=== PATIENT | female | born 1940 | race Caucasian/White ===

== ENCOUNTER 2016-12-30 16:53 | Inpatient (IN) | payer OTHER ==
--- NOTE | ~2016-12-30 | HP ---
History And Physical [address] [place]. [address] NAME: EMILEE GORDON : 38 STATUS : ADM IN [facility]#: [id number] AGE: 76 ADM/REG DATE : 12/30/16 MR#: [id number] REPORT SERV DATE: 12/30/16 DICTATED BY: MANOJ MALDONADO DATE: 12/30/16 REPORT STATUS : Draft TRANSCRIBED BY: MODL DATE: 12/30/16 DATE OF ADMISSION: 12/30/2016 CHIEF COMPLAINT: A 76-year-old female presenting with recurrent C difficile colitis. HISTORY OF PRESENT ILLNESS: The patient states that in late 10/2016, she first developed diarrhea. She apparently had no identifiable risk factors of getting C difficile colitis but was found to be positive. She underwent a 14-day course of appropriate antibiotics. Her diarrhea had subsided but then about five days after completing antibiotics, had recurrence of diarrhea. Then within this last month, she has undergone another 14 days of treatment with resolution of diarrhea but once again about five days after stopping her antibiotics, the diarrhea began to resume. Now over the last few days, she states that she has about one bowel movement an hour or more and states that in the last 24 hours, she has had more than 24 bowel movements, she is certain. Over the last about three months, she has gone from a 120 pounds to a 106 pounds (a 14-pound weight loss). She describes intermittent lower abdominal cramping pain, 8/10 severity. No fevers or chills. No nausea or vomiting. She has felt dizzy and lightheaded. In the last two days, has noticed an alarming poor urine output, which was the main reason she was prompted to come to the hospital for further evaluation. REVIEW OF SYSTEMS: Otherwise, a 14-point review of systems was obtained and was negative. PAST MEDICAL HISTORY: 1. C difficile colitis. 2. Breast cancer in 2010, status post surgery. No chemotherapy, no radiation. She was on something like tamoxifen for five years. 3. Hypertension. 4. "Twisted intestine" with surgery. 5. No cardiac disease. No lung disease. PAST SURGICAL HISTORY: 1. Left mastectomy. 2. Partial bowel resection for "twisted intestine.". 3. Appendectomy. History And Physical [address] [place]. [id number] NAME: EMILEE GORDON : 38 STATUS : ADM IN PAT#: [id number] AGE: 76 ADM/REG DATE : 12/30/16 MR#: [id number] REPORT SERV DATE: 12/30/16 DICTATED BY: MANOJ MALDONADO DATE: 12/30/16 REPORT STATUS : Draft TRANSCRIBED BY: MASON DATE: 12/30/16 ALLERGIES: TO ALEVE, BENADRYL, AND CHLORZOXAZONE. SOCIAL HISTORY: Quit smoking in 1970s. Does not drink alcohol. She is . Her is in good health. They have two children, three grandchildren. They live in [place], [place]. FAMILY HISTORY: Mother with pancreatic cancer. Father when the patient was only 3 months old from motor vehicle accident. Sister with ITP. Two of her sisters have developed Alzheimer's dementia. There is no known family history of heart disease. MEDICATIONS: Current medications include calcium and vitamin D, Vasotec 10 mg daily, enalapril/hydrochlorothiazide 10/25 p.o. daily, metoprolol XL 25 mg daily, probiotics, multivitamin, and Prilosec. PHYSICAL EXAMINATION: VITAL SIGNS: Temperature 98.5, pulse 106, blood pressure 178/83, respiratory rate 18, O2 saturation 99% on room air. GENERAL: A pleasant, cooperative female, no evidence of acute distress. HEENT: Pupils are equal, round, and reactive to light. No conjunctival pallor. No scleral icterus. Nares are patent. Oropharynx is clear of obstruction. Dry mucous membranes. NECK: Trachea midline. No thyromegaly. LYMPH: No cervical lymphadenopathy. No supraclavicular lymphadenopathy. No inguinal lymphadenopathy. RESPIRATORY: Clear to auscultation at bases. No wheezes, rales, or rhonchi. Normal respiratory effort. CARDIOVASCULAR: Tachycardic, regular rhythm. No murmurs, rubs, or gallops. No extremity edema is appreciated. ABDOMEN: Significant lower quadrant abdominal discomfort, but no guarding, no rebound. Nondistended. No hepatosplenomegaly. DERMATOLOGICAL: Warm and dry extremities. No pallor, no cyanosis. PSYCHIATRIC: Normal affect. Good mood. Alert and oriented x3. LABORATORY DATA: White blood cell count 7.6, hemoglobin 12, hematocrit 34, and platelets 242. Sodium 124, potassium 3.4, chloride 87, bicarb 24, BUN 8, creatinine 0.52, and glucose 94. Urinalysis negative for infection. ASSESSMENT AND PLAN: 1. Recurrent Clostridium difficile colitis, "failed" two previous treatments since 10/2016. We will start IV Flagyl, p.o. Vancocin. Obtain a GI consult with Dr. Blandon. May need to consider stool transplant if no success with current treatment? and would likely need to establish with a GI doctor for followup in this case. 2. Hyponatremia. The patient is hypovolemic at this time. We will treat with IV fluids and hold hydrochlorothiazide. 3. Hypokalemia. Hold hydrochlorothiazide, replace potassium. Check magnesium. History And Physical [place] [id number] [facility] [place]. [address] NAME: EMILEE GORDON : 38 STATUS : ADM IN [facility]#: [id number] AGE: 76 ADM/REG DATE : 12/30/16 MR#: [id number] REPORT SERV DATE: 12/30/16 DICTATED BY: MANOJ MALDONADO DATE: 12/30/16 REPORT STATUS : Draft TRANSCRIBED BY: MODCherrie DATE: 12/30/16 KPL/MASON Manoj Maldonado M.D. / [id number] CC: Jeffrey Nieves MD
--- NOTE | ~2016-12-30 | CN ---
Consultation Report [address] [place]. [address] NAME: EMILEE GORDON : 38 STATUS : ADM IN PAT#: [id number] AGE: 76 ADM/REG DATE : 12/30/16 MR#: [id number] REPORT SERV DATE: 12/31/16 DICTATED BY: KG RAYMOND DATE: 12/31/16 REPORT STATUS : Draft TRANSCRIBED BY: MODL DATE: 12/31/16 CONSULTATION DATE OF CONSULTATION: HISTORY OF PRESENT ILLNESS: This patient developed C difficile infection in October 2016. She had no identifiable risk factors. She received two weeks of metronidazole 500 mg t.i.d. Five days after finishing the course, she had recurrence of diarrhea. She received another 14 days of metronidazole. Five days after stopping that diarrhea came back. She was started on vancomycin. The last few days, she has been having not much diarrhea almost feels "constipated" but passing mucus. She really denies much abdominal pain. She has lost 14 pounds. PAST MEDICAL HISTORY: Breast cancer and hypertension. PAST SURGICAL HISTORY: Partial colon resection. SOCIAL HISTORY: Nonsmoker and non drinker. FAMILY HISTORY: Pancreatic cancer and ITP. CURRENT MEDICATIONS: Vancomycin. PHYSICAL EXAMINATION: GENERAL: Looks younger than stated age. VITAL SIGNS: Blood pressure 170/80. Pleasant, in no acute distress. HEENT: Trachea midline. CHEST: Clear to A and P. CARDIAC: Normal. ABDOMEN: Soft and nontender. EXTREMITIES: Without deformity or edema. LABORATORY DATA: Lab work white count 7600. Sodium was low which was corrected. IMPRESSION: Recurrent Clostridium difficile infection. Probably the organism was resistant to the metronidazole. She is on vancomycin now. RECOMMENDATION: Would finish a 10 day course of vancomycin 125 four times a day. After this the question is whether she should go on a tapering course to prevent relapse. I would probably recommend going with pulse therapy 125 four times a day every third day for 30 days. If she has another relapse after that then could consider fecal micro biotic transplant. Consultation Report [place] [address] [place]. [address] NAME: EMILEE GORDON : 38 STATUS : ADM IN PAT#: [id number] AGE: 76 ADM/REG DATE : 12/30/16 MR#: [id number] REPORT SERV DATE: 12/31/16 DICTATED BY: KG RAYMOND DATE: 12/31/16 REPORT STATUS : Draft TRANSCRIBED BY: MODL DATE: 12/31/16 MG/MASON Kg Raymond M.D. / [id number] CC: MD Ananth Cody M.D.
--- NOTE | ~2016-12-30 | DS ---
Discharge Summary [facility] [address] [place]. [address] NAME: EMILEE GORDON : 38 STATUS : DIS IN PAT#: [id number] AGE: 76 ADM/REG DATE : 12/30/16 MR#: [id number] REPORT SERV DATE: 01/01/17 DICTATED BY: JEFFREY MORENO DATE: 01/01/17 REPORT STATUS : Draft TRANSCRIBED BY: MODL DATE: 01/01/17 ADMISSION DATE: 12/30/2016 DISCHARGE DATE: 01/01/2017 DISCHARGE DIAGNOSIS: 1. Recurrent Clostridium difficile colitis. 2. Hyponatremia. 3. Hyperkalemia. CONSULTS: GI. PROCEDURES: None. HOSPITAL COURSE: This is a very pleasant 76-year-old lady, who was admitted to the hospital with recurrent C. diff colitis who has failed two previous treatment with Flagyl. For details please refer to H and P by Dr. Dooley. In summary, the patient was admitted and was treated with p.o. vancomycin therapy. The patient was actually and already started on p.o. vancomycin as an outpatient just prior to admission. GI saw the patient and recommended the patient to be on a very long p.o. vancomycin regimen. It was felt the patient probably had a strain of C. diff that was resistant to Flagyl. Throughout the hospital stay, the patient actually remained quite stable. The patient had normal white blood cell count. The patient's abdominal pain subsided, and the patient was never febrile. The patient was actually eager to be discharged home and as the patient's diarrhea has also slowed down, it was felt appropriate the patient be discharged home with close outpatient followup instructions. Of note, the patient was considered for a fecal transplant if the patient fails the p.o. vancomycin regimen this time around. DISCHARGE MEDICATIONS: The patient is going to be on extended p.o. vancomycin regimen to last six weeks taper. Otherwise no changes. DISPOSITION: Home. FOLLOWUP: 1. Please follow up with PCP in the next one to two weeks. 2. Please follow up with GI as instructed. Total of 25 minutes spent in coordinating this patient's discharge today. JERAD/MASON Jeffrey Moreno MD / [id number] Discharge Summary [address] [place]. [address] NAME: EMILEE GORDON : 38 STATUS : DIS IN PAT#: [id number] AGE: 76 ADM/REG DATE : 12/30/16 MR#: [id number] REPORT SERV DATE: 01/01/17 DICTATED BY: JEFFREY MORENO DATE: 01/01/17 REPORT STATUS : Draft TRANSCRIBED BY: MODL DATE: 01/01/17 CC: Jeffrey Moreno MD
[2016-12-30 17:11] LABS: BASOPHILS 0.7 %; BASOPHILS ABSOLUTE 0.05 10/3/uL (0.0-0.16); EOSINOPHILS 2.4 %; EOSINOPHILS ABSOLUTE 0.18 10/3/uL (0.0-0.53); ER CBC TAT 0 Hrs 05 Mins; HEMATOCRIT 33.8 % (36.0-48.0); HEMOGLOBIN 12.2 g/dL (12.0-16.0); IMMATURE GRANULOCYTES 0.3 %; IMMATURE GRANULOCYTES ABSOLUTE 0.02 10/3/uL (0.0-0.11); LYMPHOCYTES 19.3 %; LYMPHOCYTES ABSOLUTE 1.46 10/3/uL (0.67-4.30); MANUAL DIFF NO %; MEAN CORPUS HGB CONC 36.1 g/dL (32.0-36.0); MEAN CORPUSCULAR HEMOGLOB 32.7 pg (26.0-34.0); MEAN CORPUSCULAR VOLUME 90.6 fL (80-100); MEAN PLATELET VOLUME 10.4 fL (9.2-13.0); MONOCYTES 14.6 %; NEUTROPHILS 62.7 %; NEUTROPHILS ABSOLUTE 4.74 10/3/uL (2.02-8.40); PLATELET COUNT 242 10/3/uL (150-400); RBC DISTRIBUTION WIDTH 13.3 % (12.0-16.0); RED CELL COUNT 3.73 10/6/uL (4.0-5.6); WHITE BLOOD CELLS 7.6 10/3/uL (4.5-10.5)
[2016-12-30 17:20] LABS: ASCORBIC ACID (UR NOT ORDER) NEG (NEG); BILIRUBIN, URINE NEGATIVE (NEG); ER URINALYSIS TAT 0 Hrs 08 Mins; KETONE, URINE 20 MG/DL (NEG); LEUKOCYTE ESTERASE(NOT OR NEG (NEG); NITRITE (URINE) NEG (NEG); WBC (NOT ORDERED) (RFLEX) 1 (0-5)
[2016-12-30 17:27] LABS: ALBUMIN 3.4 G/DL (3.5-5.0); ALKALINE PHOSPHATASE 55 U/L (45-117); BUN (BLOOD UREA NITROGEN) 8 MG/DL (6-23); CALCIUM, SERUM 8.9 MG/DL (8.5-10.4); CHLORIDE, SERUM 87 MMOL/L (96-112); CO2 (CARBON DIOXIDE) 24 MMOL/L (24-34); CREATININE 0.52 MG/DL (0.55-1.02); GFR AFRICAN AMERICAN 107 ML/MIN (>=60); GFR NON AFRICAN AMERICAN 92 ML/MIN (>=60); GLOBULIN 3.4 G/DL (2.5-4.1); GLUCOSE, SERUM 94 MG/DL (60-99); POTASSIUM, SERUM 3.4 MMOL/L (3.5-5.3); SGOT(AST) 27 U/L (5-40); SGPT(ALT) 34 U/L (5-65); SODIUM, SERUM 124 MMOL/L (135-148); TOTAL BILIRUBIN 0.5 MG/DL (0-1.2); TOTAL PROTEIN 6.8 G/DL (6.0-8.5)
[2016-12-30] MEDS ORDERED: VASOTEC10 PO (21:03)
[2016-12-30] MEDS ORDERED: VASERETIC10 PO (21:03)
[2016-12-30] MEDS ORDERED: TOPXL25 PO (21:04)
[2016-12-30] MEDS ORDERED: CALTRA600D PO (21:04)
[2016-12-30] MEDS ORDERED: CENTRUM PO (21:04)
[2016-12-30] MEDS ORDERED: PRILO PO (21:04)
[2016-12-30] MEDS ORDERED: PROBIOTIC PO (21:05)
[2016-12-30] MEDS ORDERED: VANCOCIN HCL125 MG PO (21:06)
[2016-12-31 05:46] LABS: BASOPHILS 0.8 %; BASOPHILS ABSOLUTE 0.03 10/3/uL (0.0-0.16); EOSINOPHILS 5.1 %; HEMATOCRIT 31.1 % (36.0-48.0); HEMOGLOBIN 11.1 g/dL (12.0-16.0); IMMATURE GRANULOCYTES 0.3 %; IMMATURE GRANULOCYTES ABSOLUTE 0.01 10/3/uL (0.0-0.11); LYMPHOCYTES 34.8 %; LYMPHOCYTES ABSOLUTE 1.37 10/3/uL (0.67-4.30); MEAN CORPUS HGB CONC 35.7 g/dL (32.0-36.0); MEAN CORPUSCULAR HEMOGLOB 32.4 pg (26.0-34.0); MEAN CORPUSCULAR VOLUME 90.7 fL (80-100); MEAN PLATELET VOLUME 10.5 fL (9.2-13.0); MONOCYTES 11.2 %; MONOCYTES ABSOLUTE 0.44 10/3/uL (0.21-1.20); NEUTROPHILS 47.8 %; NEUTROPHILS ABSOLUTE 1.89 10/3/uL (2.02-8.40); PLATELET COUNT 204 10/3/uL (150-400); RBC DISTRIBUTION WIDTH 13.4 % (12.0-16.0); RED CELL COUNT 3.43 10/6/uL (4.0-5.6)
[2016-12-31 05:50] LABS: MANUAL DIFF NO %; WHITE BLOOD CELLS 3.9 10/3/uL (4.5-10.5)
[2016-12-31 05:51] LABS: INTERNATIONAL NORMAL RATI 1.1 UNITS (-); PROTIME (NOT ORD) 13.6 SEC (12.0-14.5)
[2016-12-31 06:09] LABS: A/G RATIO 0.9 (0.7-1.9); ALBUMIN 2.5 G/DL (3.5-5.0); ALKALINE PHOSPHATASE 41 U/L (45-117); BUN (BLOOD UREA NITROGEN) 6 MG/DL (6-23); CALCIUM, SERUM 8.3 MG/DL (8.5-10.4); CHLORIDE, SERUM 100 MMOL/L (96-112); CO2 (CARBON DIOXIDE) 26 MMOL/L (24-34); CREATININE 0.35 MG/DL (0.55-1.02); GFR AFRICAN AMERICAN 122 ML/MIN (>=60); GFR NON AFRICAN AMERICAN 105 ML/MIN (>=60); GLOBULIN 2.7 G/DL (2.5-4.1); GLUCOSE, SERUM 80 MG/DL (60-99); POTASSIUM, SERUM 3.5 MMOL/L (3.5-5.3); SGOT(AST) 20 U/L (5-40); SGPT(ALT) 22 U/L (5-65); SODIUM, SERUM 136 MMOL/L (135-148); TOTAL BILIRUBIN 0.4 MG/DL (0-1.2); TOTAL PROTEIN 5.2 G/DL (6.0-8.5)
[2017-01-01 07:11] LABS: BASOPHILS 1.1 %; BASOPHILS ABSOLUTE 0.03 10/3/uL (0.0-0.16); EOSINOPHILS 6.5 %; EOSINOPHILS ABSOLUTE 0.18 10/3/uL (0.0-0.53); HEMOGLOBIN 10.7 g/dL (12.0-16.0); LYMPHOCYTES 19.1 %; LYMPHOCYTES ABSOLUTE 0.53 10/3/uL (0.67-4.30); MANUAL DIFF NO %; MEAN CORPUS HGB CONC 35.7 g/dL (32.0-36.0); MEAN CORPUSCULAR HEMOGLOB 32.5 pg (26.0-34.0); MEAN CORPUSCULAR VOLUME 91.2 fL (80-100); MEAN PLATELET VOLUME 10.2 fL (9.2-13.0); NEUTROPHILS 55.3 %; NEUTROPHILS ABSOLUTE 1.54 10/3/uL (2.02-8.40); PLATELET COUNT 182 10/3/uL (150-400); RBC DISTRIBUTION WIDTH 13.5 % (12.0-16.0); RED CELL COUNT 3.29 10/6/uL (4.0-5.6); WHITE BLOOD CELLS 2.8 10/3/uL (4.5-10.5)
[2017-01-01 07:30] LABS: BUN (BLOOD UREA NITROGEN) 3 MG/DL (6-23); CALCIUM, SERUM 8.6 MG/DL (8.5-10.4); CHLORIDE, SERUM 106 MMOL/L (96-112); CO2 (CARBON DIOXIDE) 27 MMOL/L (24-34); CREATININE 0.35 MG/DL (0.55-1.02); GFR AFRICAN AMERICAN 122 ML/MIN (>=60); GFR NON AFRICAN AMERICAN 105 ML/MIN (>=60); GLUCOSE, SERUM 89 MG/DL (60-99); POTASSIUM, SERUM 3.8 MMOL/L (3.5-5.3); SODIUM, SERUM 140 MMOL/L (135-148)
[2017-01-01 08:06] LABS: PROCALCITONIN <0.05 ng/mL (<0.5)
== END 2017-01-01 14:29 | disposition home or self-care (01) | DRG 372 ==
LOC: ER 16:53 → 4SO 21:07
PROVIDERS: Emergency Medicine; Hospitalist; Internal Medicine
DX: A04.7 Enterocolitis due to Clostridium difficile (principal); E87.1 Hypo-osmolality and hyponatremia; I10 Essential (primary) hypertension; E87.6 Hypokalemia; Z85.3 Personal history of malignant neoplasm of breast; Z79.810 Long term (current) use of selective estrogen receptor modulators (SERMs); Z90.12 Acquired absence of left breast and nipple; Z90.49 Acquired absence of other specified parts of digestive tract; Z88.8 Allergy status to other drugs, medicaments and biological substances; Z88.6 Allergy status to analgesic agent; Z87.891 Personal history of nicotine dependence; Z16.39 Resistance to other specified antimicrobial drug
CPT/HCPCS: 80048; 80053; 81001; 83690; 83735; 84145; 84443; 85025; 85610; 85730; 99285; A9270-GY